=== PATIENT | male | born 1950 | race Caucasian/White ===

== ENCOUNTER 2021-11-19 11:12 | Observation (INO) | payer MEDICARE ==
[~2021-11-19] VITALS: Ht 182.9 cm; Wt 79.5 kg
[2021-11-19 12:00] LABS: BASOPHILS # (AUTO) 0.1 X10'3 (0-0.2); BASOPHILS % (AUTO) 0.9 % (0-1); EOSINOPHILS # (AUTO) 0.1 X10'3 (0-0.9); EOSINOPHILS % (AUTO) 0.8 % (0-6); HEMOGLOBIN 17.6 g/dl (14.0-17.9); LYMPHOCYTES # (AUTO) 0.5 X10'3 (1.1-4.8); LYMPHOCYTES % (AUTO) 6.7 % (21-51); MEAN CORPUSCULAR HEMOGLOBIN 34.7 PG (27.0-31.0); MEAN CORPUSCULAR HGB CONC 35.1 g/dL (33.0-36.5); MEAN CORPUSCULAR VOLUME 98.8 FL (78-98); MONOCYTES # (AUTO) 0.6 X10'3 (0-0.9); MONOCYTES % (AUTO) 9.2 % (2-12); NEUTROPHILS # (AUTO) 5.8 X10'3 (1.8-7.7); NEUTROPHILS % (AUTO) 82.4 % (42-75); PLATELET COUNT 133 X10'3 (140-440); RED BLOOD COUNT 5.06 X10'6 (4.70-6.10); RED CELL DISTRIBUTION WIDTH 14.6 % (11.5-14.5); WHITE BLOOD COUNT 7.1 X10'3 (4.5-11.0)
[2021-11-19 12:17] LABS: ALANINE AMINOTRANSFERASE 276 U/L (12-78); ALBUMIN/GLOBULIN RATIO 1.1 (1.1-1.5); ALKALINE PHOSPHATASE 217 IU/L (46-116); ANION GAP 17 (8-16); ASPARTATE AMINO TRANSFERASE 444 U/L (10-37); BILIRUBIN,TOTAL 2.9 MG/DL (0.1-1.0); BLOOD UREA NITROGEN 12 MG/DL (7-18); BUN/CREATININE RATIO 11.2 (5.4-32.0); CALCIUM 9.3 MG/DL (8.5-10.1); CHLORIDE 95 MMOL/L (99-107); CREATININE 1.07 MG/DL (0.60-1.10); GLUCOSE 114 MG/DL (70-104); POTASSIUM 3.7 MMOL/L (3.5-5.1); SODIUM 137 MMOL/L (135-145); TOTAL CARBON DIOXIDE 25.4 MMOL/L (24-32); TOTAL PROTEIN 7.6 G/DL (6.4-8.2); eGFR 68 ML/MIN
[2021-11-19] MEDS ORDERED: aspirin 81mg tab.chew PO ONE (12:35)
[2021-11-19] MEDS ORDERED: nitroGLYCERIN 0.4mg SUBLingual tab SL PRN (12:35)
[2021-11-19] MEDS ORDERED: nitroGLYCERIN 1gm ointment UD TP ONE (14:25)
[2021-11-19] MEDS ORDERED: heparin 25,000 UNIT/250ml bag 250 ML IV SCH (14:25)
[2021-11-19] MEDS ORDERED: heparin 10,000 units/1 ML INJ IV ONE ×2 (14:25→14:30)
[2021-11-19] MEDS ORDERED: potassium Cl 20 mEq SR tablet PO PRN ×2 (14:45)
[2021-11-19] MEDS ORDERED: morphine 2 MG/ML inj. syringe IV PRN (14:45)
[2021-11-19] MEDS ORDERED: ondansetron/PF 4mg/2ml inj IV PRN (14:45)
[2021-11-19] MEDS ORDERED: magnesium 4gm in 100ml NS 100 ML IV PRN (14:45)
[2021-11-19] MEDS ORDERED: magnesium Cl slow-release 64mg tablet PO PRN (14:45)
[2021-11-19] MEDS ORDERED: potassium CL 10mEq/100ml bag 100 ML IV PRN (14:45)
[2021-11-19] MEDS ORDERED: acetaminophen 325mg tablet PO PRN (14:45)
[2021-11-19] MEDS ORDERED: magnesium 2GM in 50ml NS 50 ML IV PRN (14:45)
[2021-11-19] MEDS ORDERED: PERFLUTREN PROTEIN-A MICROSPHR (Optison) 0.22 MG/ML 3ML VIAL IV ONE (14:45)
[2021-11-19 14:46] LABS: BASOPHILS # (AUTO) 0.1 X10'3 (0-0.2); BASOPHILS % (AUTO) 0.7 % (0-1); EOSINOPHILS % (AUTO) 0.4 % (0-6); HEMATOCRIT 51.1 % (42.0-52.0); HEMOGLOBIN 17.8 g/dl (14.0-17.9); LYMPHOCYTES # (AUTO) 0.5 X10'3 (1.1-4.8); LYMPHOCYTES % (AUTO) 6.7 % (21-51); MEAN CORPUSCULAR HEMOGLOBIN 34.7 PG (27.0-31.0); MEAN CORPUSCULAR HGB CONC 34.9 g/dL (33.0-36.5); MEAN CORPUSCULAR VOLUME 99.2 FL (78-98); MEAN PLATELET VOLUME 7.7 FL (7.4-10.4); MONOCYTES # (AUTO) 0.8 X10'3 (0-0.9); MONOCYTES % (AUTO) 9.4 % (2-12); NEUTROPHILS # (AUTO) 6.7 X10'3 (1.8-7.7); NEUTROPHILS % (AUTO) 82.8 % (42-75); PLATELET COUNT 118 X10'3 (140-440); RED BLOOD COUNT 5.15 X10'6 (4.70-6.10); RED CELL DISTRIBUTION WIDTH 15.1 % (11.5-14.5); WHITE BLOOD COUNT 8.1 X10'3 (4.5-11.0)
[2021-11-19] MEDS ORDERED: NO HOME MEDS (14:49)
[2021-11-19 14:56] LABS: APTT 25 SECONDS (22-32)
[2021-11-19] MEDS: normal saline 1000ml 1,000 ML IV SCH ×2 (15:05→16:36)
[2021-11-19] MEDS ORDERED: LORazepam 2 mg/ml vial IV PRN (15:10)
--- NOTE | 2021-11-19 15:29 | NUR ---
general technician at bedside.
[2021-11-19 15:30] LABS: LIPASE 982 U/L (73-393); MAGNESIUM 1.6 MG/DL (1.5-2.4)
[2021-11-19 16:05] VITALS: BP 125/83
--- NOTE | 2021-11-19 16:14 | NUR ---
Patient in room, was able to walk from rhungry horse to bed. Patient states the pain in chest is making him feel anxious.
[2021-11-19 18:00] VITALS: BP 150/97
[2021-11-19] MEDS ORDERED: folic acid 1mg/0.2ml inj IV SCH (19:00)
[2021-11-19] MEDS: K and/or MAG REPLACEMENT MC SCH (20:00)
[2021-11-19] MEDS ORDERED: heparin, porcine 5000 units/ml vial SQ SCH (20:00)
--- NOTE | 2021-11-19 20:00 | NUR ---
While doing physical assessment, pt reported usual intake of 3 to 4 shots tequilla daily. Also uses CBD frequently. Pt had an order for 0.5mg Ativan BID, but was already needing more as he was getting really anxious and shaky. Received orders from Dr Nowak to place him on a modified ETOH protocol with more frequent Ativan and B vits. Also, got order for CL diet since pt hadn't eaten all day and was hungry. Pt is on cardiac heparin drip protocol and will adjust per labs.
[2021-11-19] MEDS: LORazepam 2 mg/ml vial IV PRN (20:07)
[2021-11-19] MEDS ORDERED: thiamine 100mg/ml 2ml inj. IV SCH (21:00)
[2021-11-19] MEDS: thiamine 100mg/ml 2ml inj. IV SCH (21:04)
[2021-11-19 22:00] VITALS: BP 113/85
[2021-11-19] MEDS: heparin 10,000 units/1 ML INJ IV PRN (22:07)
[2021-11-20] MEDS: LORazepam 2 mg/ml vial IV PRN ×2 (01:22→07:16)
[2021-11-20 02:00] VITALS: BP 119/90
--- NOTE | 2021-11-20 04:00 | NUR ---
Pt wandered out of room and pulled his iv out. Blood trailed all the way down the hallway until we grabbed him and had him sit down in a chair so we could stop the bleeding and clean him up. PTT draw was a bit late and iv was restarted.
[2021-11-20 05:10] LABS: ALBUMIN 3.1 G/DL (3.4-5.0); ANION GAP 10 (8-16); BLOOD UREA NITROGEN 18 MG/DL (7-18); CALCIUM 8.6 MG/DL (8.5-10.1); CHLORIDE 100 MMOL/L (99-107); CHOL/HDL RATIO 1.7 (0.00-4.99); CHOLESTEROL 168 MG/DL (0-200); GLUCOSE 118 MG/DL (70-104); HDL CHOLESTEROL 98 MG/DL (35-60); LDL CHOLESTEROL 63 MG/DL (50-100); MAGNESIUM 1.7 MG/DL (1.5-2.4); SODIUM 138 MMOL/L (135-145); TOTAL CARBON DIOXIDE 28.2 MMOL/L (24-32); TRIGLYCERIDES 96 MG/DL (20-135); eGFR 74 ML/MIN
[2021-11-20 05:13] LABS: POTASSIUM 3.5 MMOL/L (3.5-5.1)
[2021-11-20 05:19] LABS: BASOPHILS # (AUTO) 0.1 X10'3 (0-0.2); BASOPHILS % (AUTO) 1.2 % (0-1); EOSINOPHILS # (AUTO) 0.2 X10'3 (0-0.9); EOSINOPHILS % (AUTO) 3.4 % (0-6); HEMATOCRIT 43.2 % (42.0-52.0); HEMOGLOBIN 15.1 g/dl (14.0-17.9); LYMPHOCYTES # (AUTO) 0.7 X10'3 (1.1-4.8); LYMPHOCYTES % (AUTO) 15.1 % (21-51); MEAN CORPUSCULAR HEMOGLOBIN 34.8 PG (27.0-31.0); MEAN CORPUSCULAR VOLUME 99.6 FL (78-98); MEAN PLATELET VOLUME 8.5 FL (7.4-10.4); MONOCYTES # (AUTO) 0.6 X10'3 (0-0.9); MONOCYTES % (AUTO) 13.9 % (2-12); NEUTROPHILS % (AUTO) 66.4 % (42-75); PLATELET COUNT 90 X10'3 (140-440); RED BLOOD COUNT 4.34 X10'6 (4.70-6.10); RED CELL DISTRIBUTION WIDTH 14.6 % (11.5-14.5); WHITE BLOOD COUNT 4.6 X10'3 (4.5-11.0)
[2021-11-20] MEDS: heparin 10,000 units/1 ML INJ IV PRN (05:27)
[2021-11-20 06:00] VITALS: BP 132/85
[2021-11-20] MEDS: K and/or MAG REPLACEMENT MC SCH (06:42)
[2021-11-20] MEDS: thiamine 100mg/ml 2ml inj. IV SCH (07:09)
[2021-11-20] MEDS ORDERED: folic acid 1mg/0.2ml inj IV SCH (08:00)
[2021-11-20 11:00] VITALS: BP 131/83
[2021-11-20] MEDS ORDERED: pneumococcal 23-VAL P-sac vacc 25 mcg/0.5ml vial IMVAC ONE (11:10)
[2021-11-20] MEDS ORDERED: FOLI1TAB27 PO (12:05)
[2021-11-20] MEDS ORDERED: PANT-47 PO (12:05)
[2021-11-20] MEDS ORDERED: thiamine tablet PO (12:05)
--- NOTE | 2021-11-20 12:45 | NUR ---
PT STABLE FOR DISCHARGE PER MD. DISCHARGE AND FOLLOW UP INSTRUCTIONS REVIEWED WITH PT. APPROPRIATE PAPERWORK SIGNED. PT WHEELED TO PRIVATE VEHICLE BY HOSPITAL STAFF. PT DISCHARGED TO HOME. PT LIVES WITH FRIENDS ESTEFANY AND MARY SIMON.
[2021-11-21] MEDS ORDERED: LORazepam 2 mg/ml vial IV PRN ×2 (19:25→19:55)
[2021-11-21] MEDS ORDERED: LORazepam 1 MG tablet PO PRN (19:55)
[2021-11-23] MEDS ORDERED: thiamine 100mg tablet PO SCH (08:00)
[2021-11-23] MEDS ORDERED: folic acid 1mg tablet PO SCH (08:00)
[2021-11-23] MEDS ORDERED: LORazepam 2 mg/ml vial IV PRN ×2 (19:25→19:55)
[2021-11-23] MEDS ORDERED: LORazepam 1 MG tablet PO PRN ×2 (19:25→19:55)
[2021-11-24] MEDS ORDERED: thiamine 100mg tablet PO SCH (08:00)
[2021-11-24] MEDS ORDERED: folic acid 1mg tablet PO SCH (08:00)
== END 2021-11-20 12:44 | disposition home or self-care (01) ==
LOC: ER 11:13 → ED HOLD 14:49 → PCU 3S 16:01
PROVIDERS: ADMIT Internal Medicine; ATTEND Internal Medicine
DX: K85.90 Acute pancreatitis without necrosis or infection, unspecified (principal); K76.0 Fatty (change of) liver, not elsewhere classified; R07.89 Other chest pain; I20.0 Unstable angina; R74.01 Elevation of levels of liver transaminase levels; Z79.899 Other long term (current) drug therapy
CPT/HCPCS: 36415; 71045; 76700; 80048; 80053; 80061; 83690; 83735; 83880; 84484; 85025; 85610; 85730; 87081; 93005; 93306; 96365; 96366; 96375; 96376; 99285; G0378; J1644; J2060; J3411; J3490; J7030